=== PATIENT | male | born 1960 | race Caucasian/White ===

== ENCOUNTER → 2016-10-19 | Outpatient (CLI) | payer OTHER ==
--- NOTE | 2016-10-19 08:18 | KCIC ---
Indication: Pre-MRI screening. Time of exam 8:01 AM No radiopaque orbital foreign body is detected. Electronically signed by: Sunny Cook MD (10/19/2016 8:14 AM) [id number]
--- NOTE | 2016-10-19 09:43 | KCIC ---
Examination: MRI of the left shoulder without contrast HISTORY: History of left shoulder pain, decreased range of motion COMPARISON: None TECHNIQUE: Multiplanar, multisequence MR imaging of the left shoulder was performed without contrast. FINDINGS: The long head the biceps tendon is within the bicipital groove with attachment of the long head of the biceps tendon to the labral anchor grossly appears intact. Small amount of fluid identified around the long head biceps tendon within the bicipital groove. The subscapularis tendon demonstrates mild increased signal likely mild tendinosis. There is mild increased signal identified in the supraspinatus and infraspinatus tendon likely mild tendinosis. There is mild increased T2 signal identified in the bursal side of the supraspinatus tendon. There is 1.3 cm low T2 signal calcification identified overlying the supraspinatus tendon just superior and lateral to the greater tuberosity likely calcific tendinitis. No evidence of full-thickness tear identified. Small amount of fluid identified in the subdeltoid bursa. The attachment of the teres minor tendon grossly appears intact. The visualized labrum grossly appears unremarkable. The muscle bulk grossly appears unremarkable. Moderate degenerative changes identified in the acromion clavicular joint. Acromion is type II. Impression: 1. Calcification identified superficial to the supraspinatus tendon attachment to the greater tuberosity likely calcific tendinitis. 2. Mild tendinosis of the supraspinatus, infraspinatus tendons. Mild increased signal identified in the bursal side of the supraspinatus tendon, question small bursal sided tear. 3. Moderate degenerative changes acromioclavicular joint. Electronically signed by: Yury Mcgowan MD (10/19/2016 9:39 AM) [facility]-KCIC2
== END | disposition home or self-care (01) ==
LOC: KCIC MRI 07:47
PROVIDERS: ATTEND Physician Assistant Medical
DX: M75.102 Unspecified rotator cuff tear or rupture of left shoulder, not specified as traumatic (principal)
CPT/HCPCS: 70030; 73221

== ENCOUNTER → 2019-02-06 | Outpatient (CLI) | payer OTHER ==
--- NOTE | 2019-02-06 16:14 | KCIC ---
MR of the right knee HISTORY: Right knee pain, twisting injury yesterday. TECHNIQUE: Routine multiplanar sequences are obtained. FINDINGS: No evidence of medial meniscal tear. No evidence of lateral meniscal tear. Anterior and posterior cruciate ligament intact. Medial collateral ligament intact. Iliotibial band unremarkable. Fibular collateral ligament and popliteus tendon both demonstrate thickening and heterogeneity, particularly towards their femoral attachment, likely due to chronic degeneration. No acute rupture is seen. Extensor mechanism is intact.. Trace joint effusion. Mild chondromalacia of the patella, moderate to severe at the femoral trochlea. Moderate chondral thinning at the medial and lateral joint compartments. Several small hypointense structures posterior to the PCL, likely small loose bodies measuring up to 4 mm in diameter. No acute fracture. No aggressive bone destruction. Small Arnold's cyst. Mild subcutaneous edema anterior to the patellar tendon. IMPRESSION: 1. Mild motion degradation. 2. DJD, with small posterior loose bodies. 3. Mild thickening and heterogeneity of the popliteus tendon and proximal fibular collateral ligament, likely degenerative in nature. Electronically signed by: Karan Marie MD (02/06/2019 4:11 PM) [facility]-KCIC2
== END | disposition home or self-care (01) ==
LOC: KCIC MRI 14:22
PROVIDERS: ATTEND Physician Assistant
DX: M22.41 Chondromalacia patellae, right knee (principal); M17.11 Unilateral primary osteoarthritis, right knee; M71.21 Synovial cyst of popliteal space [Baker], right knee; M79.89 Other specified soft tissue disorders
CPT/HCPCS: 73721

== ENCOUNTER 2020-06-05 12:26 | Inpatient (IN) | payer SELFPAY ==
[~2020-06-05] VITALS: Ht 172.7 cm; Wt 100.0 kg
[2020-06-05] MEDS ORDERED: methylPREDNISolone SOD SUCC PF 125 MG/2 ML VIAL. IV ONE (12:45)
--- NOTE | 2020-06-05 12:56 | PHYS DOC ---
General Adult EDM: Chief Complaint: SHORTNESS OF BREATH HPI: HPI: Patient is a 59 year old male who [facility] and found out he was positive for Covid on Wednesday. He states ever since then his cough and shortness of breath has increased and he has lack of appetite. Patient has a history of cardiac stents, hypertension high cholesterol. He denies any chest pain at this time. He states that shortness of breath is more so when he tries to take a deep breath and starts coughing and short of breath. He denies chest pain, dizziness, vomiting, nausea, syncope, diarrhea, focal weakness, numbness or tingling. Rating his discomfort at this time 6 out of 10. (IDA PEÑA APRN) Review of Systems: Review of Systems: Constitutional: + fever or chills. [] Eyes: Denies change in visual acuity. [] HENT: Denies nasal congestion or sore throat. [] Respiratory: + cough or +shortness of breath. [] Cardiovascular: Denies chest pain or edema. [] GI: Denies abdominal pain, nausea, vomiting, bloody stools or diarrhea. + Lack of appetite [] : Denies dysuria. [] Musculoskeletal: Denies back pain or joint pain. + Generalized fatigue and body aches [] Integument: Denies rash. [] Neurologic: Denies headache, focal weakness or sensory changes. [] Endocrine: Denies polyuria or polydipsia. [] Lymphatic: Denies swollen glands. [] Psychiatric: Denies depression or anxiety. [] (DIA PEÑA APRN) Heart Score: C/O Chest Pain: No Risk Factors: Risk Factors: DM, Current or recent (<one month) smoker, HTN, HLP, family history of CAD, obesity. Risk Scores: Score 0 - 3: 2.5% MACE over next 6 weeks - Discharge Home Score 4 - 6: 20.3% MACE over next 6 weeks - Admit for Clinical Observation Score 7 - 10: 72.7% MACE over next 6 weeks - Early Invasive Strategies (IDA PEÑA APRN) Current Medications: Current Medications Medications (Trade) Dose Ordered Sig/Maria Dolores Start Time Stop Time Status Last Admin Dose Admin Methylprednisolone Sodium Succinate (SOLU-Medrol 125MG VIAL) 125 mg 1X ONCE 06/05/20 12:45 4/28/21 12:46 UNV (IDA PEÑA APRN) Physical Exam: PE: Constitutional: Well developed, well nourished, no acute distress, non-toxic appearance. [] HENT: Normocephalic, atraumatic, bilateral external ears normal, oropharynx moist, no oral exudates, nose normal. [] Eyes: PERRLA, EOMI, conjunctiva normal, no discharge. [] Neck: Normal range of motion, no tenderness, supple, no stridor. [] Cardiovascular:Heart rate regular rhythm, no murmur [] Lungs & Thorax: Bilateral breath sounds clear to auscultation [] Abdomen: Bowel sounds normal, soft, no tenderness, no masses, no pulsatile masses. [] Skin: Warm, dry, no erythema, no rash. [] Back: No tenderness, no CVA tenderness. [] Extremities: No tenderness, no cyanosis, no clubbing, ROM intact, no edema. [] Neurologic: Alert and oriented X 3, normal motor function, normal sensory function, no focal deficits noted. [] Psychologic: Affect normal, judgement normal, mood normal. Normal physical exam [] (IDA PEÑA APRN) EKG: EK and read by Dr Johnson as Sinus Rhythm and no STEMI[] (IDA PEÑA APRN) Radiology/Procedures: Radiology/Procedures: [] Impression: [facility] [address] [place] [address] IMAGING REPORT Signed PATIENT: JANINE KAPLAN ACCOUNT: [id number] : 1960 LOCATION: ER AGE: 59 SEX: M EXAM STATUS: REG ER ORD. PHYSICIAN: IDA PEÑA APRN REASON: soa, covid+ PROCEDURE: PORTABLE CHEST 1V INDICATION: Reason: soa, covid+ / Spl. Instructions: / History: COMPARISON: None. FINDINGS: Single view of chest obtained. Cardiac silhouette is borderline in size. Patchy opacities throughout the bilateral lungs including interstitial and alveolar component IMPRESSION: * Interstitial and alveolar opacities bilaterally. This could be infectious in nature given the patient's history. Electronically signed by: Jaci Otoole MD (06/05/2020 1:28 PM) [id number] DICTATED and SIGNED BY: JACI OTOOLE MD DATE: 06/05/20 [id number] (IDA PEÑA APRN) Course & Med Decision Making: Course & Med Decision Making Pertinent Labs and Imaging studies reviewed. (See chart for details) See HPI. Alert and oriented x4. Ambulatory with a steady gait. Speaks in full clear sentences. No respiratory distress. Lungs are clear to auscultation all lobes. No extremity swelling. Skin pink warm and dry. Patient is anywhere from 89% to 90% on room air. He is placed on 2 L of oxygen. Chest x-ray shows pneumonia. Patient received fluid bolus, azithromycin and Solu-Medrol in the ED. Patient is admitted to Dr. Sharma and will consult pulmonary. [] (IDA PEÑA APRN) Dragon Disclaimer: Dragdonato Disclaimer: This electronic medical record was generated, in whole or in part, using a voice recognition dictation system. (IDA PEÑA APRN) COVID-19 Patient Risks: Age 65 or older: No Sign of co-morbidity: Yes Exp to person + for COVID: Yes Exp to PUI: No Travel from affected area: No Lower respiratory symptoms: Yes Fever: No Other: Yes (POSITIVE FOR COVID) (IDA PEÑA APRN) PPE Use: Full PPE with N95 mask or PAPR: Yes (IDA PEÑA APRN) Departure Departure Impression: Primary Impression: Pneumonia Qualified Codes: J18.9 - Pneumonia, unspecified organism Additional Impressions: COVID-19 Hypoxia Disposition: ADMITTED INPATIENT Admitting Physician: LOLA (IDA PEÑA APRN) Condition: STABLE Referrals: NO PCP (PCP) Attending Signature Attending Signature I have participated in the care of this patient and I have reviewed and agree with all pertinent clinical information above including history, exam, and recommendations. (VASILE JOHNSON DO) IDA PEÑA APRN Jun 05, 2020 12:56 VASILE JOHNSON DO Jun 05, 2020 15:47
--- NOTE | 2020-06-05 13:30 | RAD ---
INDICATION: Reason: soa, covid+ / Spl. Instructions: / History: COMPARISON: None. FINDINGS: Single view of chest obtained. Cardiac silhouette is borderline in size. Patchy opacities throughout the bilateral lungs including i nterstitial and alveolar component IMPRESSION: * Interstitial and alveolar opacities bilaterally. This could be infectious in nature given the tye ent's history. Electronically signed by: Carlos Patel MD (06/05/2020 1:28 PM) [id number]
[2020-06-05] MEDS ORDERED: AZITHRMYCN 500MG IVPB FOR OMNI 250 ML IV ONE (13:45)
--- NOTE | 2020-06-05 13:48 | EKG ---
[facility] [address] [place] [address] Test Date: 2020-06-05 Test Time: 13:09:16 Pat Name: JANINE KAPLAN Department: Room: Gender: M Paper Folder: : 1960 Requested By: IDA PEÑA Order Number: [id number] Reading MD: Measurements Intervals [place] Rate: 82 P: 26 [place]: 174 QRS: -4 QRSD: 80 T: 1 QT: 366 QTc: 431 Interpretive Statements SINUS RHYTHM LEFTWARD AXIS QRS(T) CONTOUR ABNORMALITY CONSIDER INFERIOR INFARCT POSSIBLY ABNORMAL ECG RI6.02 No previous ECG available for comparison
[2020-06-05 13:55] LABS: BASO % 0 % (0-3); EOS % 0 % (0-3); HEMATOCRIT 43.9 % (39.0-53.0); HEMOGLOBIN 15.4 g/dL (13.0-17.5); LYMPH # 0.6 x10^3/uL (1.0-4.8); LYMPH % 15 % (24-48); MEAN CORPUSCULAR HEMOGLOBIN 31 pg (25-35); MEAN CORPUSCULAR HGB CONC 35 g/dL (31-37); MEAN CORPUSCULAR VOLUME 87 fL (79-100); MONO # 0.4 x10^3/uL (0.0-1.1); MONO % 11 % (0-9); NEUT # 2.8 x10^3/uL (1.8-7.7); NEUT % 74 % (31-73); PLATELET COUNT 208 x10^3/uL (140-400); RED BLOOD COUNT 5.04 x10^6/uL (4.30-5.70); RED CELL DISTRIBUTION WIDTH 13.5 % (11.5-14.5); WHITE BLOOD COUNT 3.8 x10^3/uL (4.0-11.0)
[2020-06-05] MEDS ORDERED: ACETAMINOPHEN 325 MG TABLET. PO PRN (14:00)
[2020-06-05 14:06] LABS: CALCIUM 8.5 mg/dL (8.5-10.1); CREATININE 1.6 mg/dL (0.7-1.3); GFR 44.6; POTASSIUM 3.5 mmol/L (3.5-5.1)
[2020-06-05 14:14] LABS: BASE EXCESS COOX 0 mmol/L (-3-3); HCO3 COOX 24 mmol/L (21-28); METHEMOGLOBIN 0.3 % (0.0-1.9); OXYHEMOGLOBIN 94.7 %; PCO2 COOX 37 mmHg (35-46); PO2 COOX 76 mmHg (75-108); SAT O2 COOX 95 % (92-99)
[2020-06-05 14:20] LABS: ALBUMIN 3.2 g/dL (3.4-5.0); ALBUMIN/GLOBULIN RATIO 0.9 (1.0-1.7); TOTAL BILIRUBIN 0.6 mg/dL (0.2-1.0); TOTAL PROTEIN 6.8 g/dL (6.4-8.2)
[2020-06-05] MEDS: ALBUTEROL SULFATE 8GM INHALER. INH SCH ×2 (14:57→21:42)
[2020-06-05 16:30] VITALS: BP 128/80
--- NOTE | 2020-06-05 16:52 | PDOC1 ---
History and Physical Date of Admission Date of Admission DATE: 06/05/20 TIME: 16:47 Identification/Chief Complaint Chief Complaint COVID sx Source Source: Chart review, Patient History of Present Illness History of Present Illness Mr. Wu, is a 59 year old male admit with cough, dyspnea and weakness, He has known he was COVID pos for a week, and has been feeling worse, with weakness and shortness of breath, lethargy. He complaints of worsening cough and shortness of breath has increased and he has lack of appetite. . He denies any chest pain at this time. He states that shortness of breath is more so when he tries to take a deep breath and starts coughing and short of breath. He denies chest pain, dizziness, vomiting, nausea, syncope, diarrhea, focal weakness, numbness or tingling. Rating his discomfort at this time 6 out of 10. he works in [employer], has been out for over 2 weeks, his employer is also ill with COVID Past Medical History Past Medical History prior cardiac stent Cardiovascular: CAD, HTN, Hyperlipidemia Pulmonary: No pertinent hx Heme/Onc: No pertinent hx Hepatobiliary: No pertinent hx Psych: No pertinent hx Renal/: No pertinent hx Past Surgical History Past Surgical History: Other (stent) Family History Family History: No Significant Social History Smoke: No ALCOHOL: none Drugs: None Current Problem List Problem List Problems Medical Problems: (1) COVID-19 Status: Acute (2) Hypoxia Status: Acute (3) Pneumonia Status: Acute Current Medications Current Medications Current Medications Methylprednisolone Sodium Succinate (SOLU-Medrol 125MG VIAL) 125 mg 1X ONCE IV Last administered on 06/05/20at 13:44; Start 06/05/20 at 12:45; Stop 06/05/20 at 12:56; Status DC Azithromycin 250 ml @ 250 mls/hr 1X ONCE IV Last administered on 06/05/20at 13:45; Start 06/05/20 at 13:45; Stop 06/05/20 at 14:44; Status DC Acetaminophen (Tylenol) 650 mg PRN Q4HRS PRN PO FEVER > 100.3'F; Start 06/05/20 at 14:00; Stop 06/06/20 at 13:59 Albuterol Sulfate (Ventolin Hfa) 2 puff RTQID INH Last administered on 4/28/21at 14:57; Start 06/05/20 at 14:30 Enoxaparin Sodium (Lovenox Per Pharmacy Prophylaxis Dosing) 1 each PRN DAILY PRN MC SEE COMMENTS; Start 06/05/20 at 15:00 Prednisone (Prednisone) 40 mg DAILY PO ; Start 06/06/20 at 09:00 Vitamin D (Vitamin D3) 5,000 unit DAILY PO ; Start 06/06/20 at 09:00 Ascorbic Acid (Vitamin C) 500 mg DAILY PO ; Start 06/06/20 at 09:00 Zinc Sulfate (Orazinc) 220 mg DAILY PO ; Start 06/06/20 at 09:00 Enoxaparin Sodium (Lovenox 40mg Syringe) 40 mg Q24H SQ ; Start 06/05/20 at 16:00 Allergies Allergies: Coded Allergies: Penicillins (Verified Allergy, Unknown, 06/05/20) ROS General: YES: Fatigue, Malaise PSYCHOLOGICAL ROS: No: Anxiety, Behavioral Disorder, Concentration difficultie, Decreased libido, Depression, Disorientation, Hallucinations, Hostility, Irritablity, Memory difficulties, Mood Swings, Obsessive thoughts, Physical abuse, Sexual abuse, Sleep disturbances, Suicidal ideation, Other Eyes: No Blurry vision, No Decreased vision, No Double vision, No Dry eyes, No Excessive tearing, No Eye Pain, No Itchy Eyes, No Loss of vision, No Photophobia, No Scotomata, No Uses contacts, No Uses glasses, No Other HEENT: YES: Heacaches; No: Visual Changes, Hearing change, Nasal congestion, Nasal discharge, Oral lesions, Sinus pain, Sore Throat, Epistaxis, Sneezing, Snoring, Tinnitus, Vertigo, Vocal changes, Other Respiratory: YES: Shortness of breath, SOB with excertion, Tachypnea; No: Cough, Hemoptysis, Orthopnea, Pleuritic Pain, Sputum Changes, Stridor, Wheezing, Other Cardiovascular: No Chest Pain, No Palpitations, No Orthopnea, No Paroxysmal Noc. Dyspnea, No Edema, No Lt Headedness, No Other Gastrointestinal: No Nausea, No Vomiting, No Abdominal Pain, No Diarrhea, No Constipation, No Melena, No Hematochezia, No Other Genitourinary: No Dysuria, No Frequency, No Incontinence, No Hematuria, No Retention, No Discharge, No Urgency, No Pain, No Flank Pain, No Other, No , No , No , No , No , No , No Musculoskeletal: No Gait Disturbance, No Joint Pain, No Joint Stiffness, No Joint Swelling, No Muscle Pain, No Muscular Weakness, No Pain In:, No Swelling In:, No Other Neurological: No Behavorial Changes, No Bowel/Bladder ControlChng, No Confusion, No Dizziness, No Gait Disturbance, No Headaches, No Impaired Coord/balance, No Memory Loss, No Numbness/Tingling, No Seizures, No Speech Problems, No Tremors, No Visual Changes, No Weakness, No Other Skin: Yes Dry Skin Physical Exam General: Alert, Oriented X3, mild distress HEENT: Atraumatic, EOMI Lungs: Other (limited vol, rales, ) Heart: S1S2 Abdomen: Soft Extremities: No edema Skin: No significant lesion Neuro: Normal speech, Sensation intact, Cranial nerves 3-12 NL Psych/Mental Status: Mental status NL, Mood NL Vitals Vitals Vital Signs Date Time Temp Pulse Resp B/P (MAP) Pulse Ox O2 Delivery O2 Flow Rate FiO2 06/05/20 16:21 72 120/73 (89) 95 Nasal Cannula 2.0 06/05/20 12:56 98.6 22 98.6 Labs Labs Laboratory Tests Test 06/05/20 13:00 06/05/20 14:15 White Blood Count 3.8 x10^3/uL (4.0-11.0) Red Blood Count 5.04 x10^6/uL (4.30-5.70) Hemoglobin 15.4 g/dL (13.0-17.5) Hematocrit 43.9 % (39.0-53.0) Mean Corpuscular Volume 87 fL (79-100) Mean Corpuscular Hemoglobin 31 pg (25-35) Mean Corpuscular Hemoglobin Concent 35 g/dL (31-37) Red Cell Distribution Width 13.5 % (11.5-14.5) Platelet Count 208 x10^3/uL (140-400) Neutrophils (%) (Auto) 74 % (31-73) Lymphocytes (%) (Auto) 15 % (24-48) Monocytes (%) (Auto) 11 % (0-9) Eosinophils (%) (Auto) 0 % (0-3) Basophils (%) (Auto) 0 % (0-3) Neutrophils # (Auto) 2.8 x10^3/uL (1.8-7.7) Lymphocytes # (Auto) 0.6 x10^3/uL (1.0-4.8) Monocytes # (Auto) 0.4 x10^3/uL (0.0-1.1) Eosinophils # (Auto) 0.0 x10^3/uL (0.0-0.7) Basophils # (Auto) 0.0 x10^3/uL (0.0-0.2) Sodium Level 141 mmol/L (136-145) Potassium Level 3.5 mmol/L (3.5-5.1) Chloride Level 104 mmol/L (98-107) Carbon Dioxide Level 26 mmol/L (21-32) Anion Gap 11 (6-14) Blood Urea Nitrogen 19 mg/dL (8-26) Creatinine 1.6 mg/dL (0.7-1.3) Estimated GFR (Cockcroft-Gault) 44.6 BUN/Creatinine Ratio 12 (6-20) Glucose Level 105 mg/dL (70-99) Lactic Acid Level 1.5 mmol/L (0.4-2.0) Calcium Level 8.5 mg/dL (8.5-10.1) Total Bilirubin 0.6 mg/dL (0.2-1.0) Aspartate Amino Transf (AST/SGOT) 36 U/L (15-37) Alanine Aminotransferase (ALT/SGPT) 33 U/L (16-63) Alkaline Phosphatase 67 U/L (46-116) Troponin I Quantitative < 0.017 ng/mL (0.000-0.055) KK-Szv-[id number]-Type Natriuretic Peptide 33 pg/mL (0-124) Total Protein 6.8 g/dL (6.4-8.2) Albumin 3.2 g/dL (3.4-5.0) Albumin/Globulin Ratio 0.9 (1.0-1.7) O2 Saturation 95 % (92-99) Arterial Blood pH 7.43 (7.35-7.45) Arterial Blood pCO2 at Patient Temp 37 mmHg (35-46) Arterial Blood pO2 at Patient Temp 76 mmHg (75-108) Arterial Blood HCO3 24 mmol/L (21-28) Arterial Blood Base Excess 0 mmol/L (-3-3) Oxyhemoglobin 94.7 % Methemoglobin 0.3 % (0.0-1.9) Carbon Monoxide, Quantitative 0.1 % (0.0-1.9) FiO2 3l nc Laboratory Tests Test 06/05/20 13:00 06/05/20 14:15 White Blood Count 3.8 x10^3/uL (4.0-11.0) Red Blood Count 5.04 x10^6/uL (4.30-5.70) Hemoglobin 15.4 g/dL (13.0-17.5) Hematocrit 43.9 % (39.0-53.0) Mean Corpuscular Volume 87 fL (79-100) Mean Corpuscular Hemoglobin 31 pg (25-35) Mean Corpuscular Hemoglobin Concent 35 g/dL (31-37) Red Cell Distribution Width 13.5 % (11.5-14.5) Platelet Count 208 x10^3/uL (140-400) Neutrophils (%) (Auto) 74 % (31-73) Lymphocytes (%) (Auto) 15 % (24-48) Monocytes (%) (Auto) 11 % (0-9) Eosinophils (%) (Auto) 0 % (0-3) Basophils (%) (Auto) 0 % (0-3) Neutrophils # (Auto) 2.8 x10^3/uL (1.8-7.7) Lymphocytes # (Auto) 0.6 x10^3/uL (1.0-4.8) Monocytes # (Auto) 0.4 x10^3/uL (0.0-1.1) Eosinophils # (Auto) 0.0 x10^3/uL (0.0-0.7) Basophils # (Auto) 0.0 x10^3/uL (0.0-0.2) Sodium Level 141 mmol/L (136-145) Potassium Level 3.5 mmol/L (3.5-5.1) Chloride Level 104 mmol/L (98-107) Carbon Dioxide Level 26 mmol/L (21-32) Anion Gap 11 (6-14) Blood Urea Nitrogen 19 mg/dL (8-26) Creatinine 1.6 mg/dL (0.7-1.3) Estimated GFR (Cockcroft-Gault) 44.6 BUN/Creatinine Ratio 12 (6-20) Glucose Level 105 mg/dL (70-99) Lactic Acid Level 1.5 mmol/L (0.4-2.0) Calcium Level 8.5 mg/dL (8.5-10.1) Total Bilirubin 0.6 mg/dL (0.2-1.0) Aspartate Amino Transf (AST/SGOT) 36 U/L (15-37) Alanine Aminotransferase (ALT/SGPT) 33 U/L (16-63) Alkaline Phosphatase 67 U/L (46-116) Troponin I Quantitative < 0.017 ng/mL (0.000-0.055) HL-Udp-Y-Type Natriuretic Peptide 33 pg/mL (0-124) Total Protein 6.8 g/dL (6.4-8.2) Albumin 3.2 g/dL (3.4-5.0) Albumin/Globulin Ratio 0.9 (1.0-1.7) O2 Saturation 95 % (92-99) Arterial Blood pH 7.43 (7.35-7.45) Arterial Blood pCO2 at Patient Temp 37 mmHg (35-46) Arterial Blood pO2 at Patient Temp 76 mmHg (75-108) Arterial Blood HCO3 24 mmol/L (21-28) Arterial Blood Base Excess 0 mmol/L (-3-3) Oxyhemoglobin 94.7 % Methemoglobin 0.3 % (0.0-1.9) Carbon Monoxide, Quantitative 0.1 % (0.0-1.9) FiO2 3l nc VTE Prophylaxis Ordered VTE Prophylaxis Devices: No VTE Pharmacological Prophylaxi: Yes Assessment/Plan Assessment/Plan acute hypoxia pneumonia COVID 19 positive with weakness and cough admit, azithro, steroids, vitamins, consult PULM, obese, BMI 34 CAD hx htn, CKD 2 or dry, will hydrate, recheck labs Justifications for Admission Other Justification ANDREE AWAN MD Jun 05, 2020 16:52
[2020-06-05] MEDS ORDERED: POTASSIUM CHLORIDE 20 MEQ TABLET.ER. PO ONE (17:00)
[2020-06-05] MEDS: ENOXAPARIN 40 MG/0.4 ML SYRINGE. SQ SCH (17:13)
[2020-06-05] MEDS ORDERED: LISI20TA18 PO (18:19)
[2020-06-05] MEDS ORDERED: CLOP75TA PO (18:19)
[2020-06-05] MEDS ORDERED: CARV6.25 PO (18:19)
[2020-06-05] MEDS ORDERED: ALPR0.5T PO (18:19)
[2020-06-05 19:00] VITALS: BP 119/82
[2020-06-05 22:57] VITALS: BP 111/74
[2020-06-06 03:00] VITALS: BP 123/80
[2020-06-06 07:00] VITALS: BP 124/75
[2020-06-06] MEDS ORDERED: ASCORBIC ACID 500 MG TABLET PO SCH (09:00)
[2020-06-06] MEDS ORDERED: ZINC SULFATE 220 MG CAPSULE. PO SCH (09:00)
[2020-06-06] MEDS ORDERED: predniSONE 20 MG TABLET PO SCH (09:00)
[2020-06-06] MEDS ORDERED: CHOLECALCIFEROL (VITAMIN D3) 5,000 UNIT CAPSULE PO SCH (09:00)
[2020-06-06] MEDS: ALBUTEROL SULFATE 8GM INHALER. INH SCH ×3 (10:17→16:27)
--- NOTE | 2020-06-06 10:49 | NUR ---
[facility] following. Discussed with RN, pt from home, 2L (does not use oxygen at home), cardiac diet. Pt is not wanting to be in the hospital as he is concerned about cost. Per RN, pt willing to pay whatever he needs to have oxygen at home and be able to discharge home today. Pt is COVID positive. RN will order a 6 minute walk, SW awaiting self pay prices for oxygen. [facility] will continue to follow. Addendum: 06/06/20 at 1619 by HERRERA CRAIN Per RN pt does need oxygen however still waiting for respiratory to enter their notes. [facility] provided referral packet to RN with fax number for [employer] which was the cheapest self pay oxygen at $120 a month. RN will fax referral to [employer] once 6 minute walk results are available. Tank left with Gail CONNOLLY to give to patient once the okay given by [employer]. Discharge order for home with self care.
[2020-06-06 11:00] VITALS: BP 137/82
--- NOTE | 2020-06-06 11:47 | PDOC ---
[employer] PROGRESS NOTE Date of Service DOS: DATE: 06/06/20 TIME: 11:46 Chief Complaint Chief Complaint A/P: acute hypoxia pneumonia COVID 19 positive with weakness and cough admit, azithro, steroids, vitamins, consult PULM, obese, BMI 34 CAD hx htn, CKD 2 or dry, will hydrate, recheck labs History of Present Illness History of Present Illness Mr. Wu, is a 59 year old male admit with cough, dyspnea and weakness, He has known he was COVID pos for a week, and has been feeling worse, with weakness and shortness of breath, lethargy. Symptoms aguilar on 05/22/2020 He complaints of worsening cough and shortness of breath has increased and he has lack of appetite. . He denies any chest pain at this time. He states that shortness of breath is more so when he tries to take a deep breath and starts coughing and short of breath. He denies chest pain, dizziness, vomiting, nausea, syncope, diarrhea, focal weakness, numbness or tingling. Rating his discomfort at this time 6 out of 10. he works in [employer], has been out for over 2 weeks, his employer is also ill with COVID Decreased appetite weak and achy. Requiring 3 L of oxygen otherwise desaturates to 84%. He is amenable to having remdesivir and steroid therapy. He is very anxious to go home. Plan: Remdesivir loading dose, IV Decadron. Will go home after 6-minute walk if his O2 needs are less than 4 L and take 10 days of Decadron and antiplatelet zinc cough syrup. Discussed with pulmonology Vitals/I&O Vitals/I&O: Vital Signs Date Time Temp Pulse Resp B/P (MAP) Pulse Ox O2 Delivery O2 Flow Rate FiO2 06/06/20 07:50 Nasal Cannula 2.0 06/06/20 07:00 98.4 85 18 124/75 (91) 91 98.4 I & O 06/05/20 06/05/20 06/06/20 15:00 23:00 07:00 Intake Total 200 ml Balance 200 ml Physical Exam General: Alert, Oriented X3, mild distress Abdomen: Soft Extremities: No edema Skin: No significant lesion Labs Labs: Laboratory Tests Test 06/05/20 13:00 06/05/20 14:15 White Blood Count 3.8 x10^3/uL (4.0-11.0) Red Blood Count 5.04 x10^6/uL (4.30-5.70) Hemoglobin 15.4 g/dL (13.0-17.5) Hematocrit 43.9 % (39.0-53.0) Mean Corpuscular Volume 87 fL (79-100) Mean Corpuscular Hemoglobin 31 pg (25-35) Mean Corpuscular Hemoglobin Concent 35 g/dL (31-37) Red Cell Distribution Width 13.5 % (11.5-14.5) Platelet Count 208 x10^3/uL (140-400) Neutrophils (%) (Auto) 74 % (31-73) Lymphocytes (%) (Auto) 15 % (24-48) Monocytes (%) (Auto) 11 % (0-9) Eosinophils (%) (Auto) 0 % (0-3) Basophils (%) (Auto) 0 % (0-3) Neutrophils # (Auto) 2.8 x10^3/uL (1.8-7.7) Lymphocytes # (Auto) 0.6 x10^3/uL (1.0-4.8) Monocytes # (Auto) 0.4 x10^3/uL (0.0-1.1) Eosinophils # (Auto) 0.0 x10^3/uL (0.0-0.7) Basophils # (Auto) 0.0 x10^3/uL (0.0-0.2) Sodium Level 141 mmol/L (136-145) Potassium Level 3.5 mmol/L (3.5-5.1) Chloride Level 104 mmol/L (98-107) Carbon Dioxide Level 26 mmol/L (21-32) Anion Gap 11 (6-14) Blood Urea Nitrogen 19 mg/dL (8-26) Creatinine 1.6 mg/dL (0.7-1.3) Estimated GFR (Cockcroft-Gault) 44.6 BUN/Creatinine Ratio 12 (6-20) Glucose Level 105 mg/dL (70-99) Lactic Acid Level 1.5 mmol/L (0.4-2.0) Calcium Level 8.5 mg/dL (8.5-10.1) Total Bilirubin 0.6 mg/dL (0.2-1.0) Aspartate Amino Transf (AST/SGOT) 36 U/L (15-37) Alanine Aminotransferase (ALT/SGPT) 33 U/L (16-63) Alkaline Phosphatase 67 U/L (46-116) Troponin I Quantitative < 0.017 ng/mL (0.000-0.055) CR-Dot-R-Type Natriuretic Peptide 33 pg/mL (0-124) Total Protein 6.8 g/dL (6.4-8.2) Albumin 3.2 g/dL (3.4-5.0) Albumin/Globulin Ratio 0.9 (1.0-1.7) O2 Saturation 95 % (92-99) Arterial Blood pH 7.43 (7.35-7.45) Arterial Blood pCO2 at Patient Temp 37 mmHg (35-46) Arterial Blood pO2 at Patient Temp 76 mmHg (75-108) Arterial Blood HCO3 24 mmol/L (21-28) Arterial Blood Base Excess 0 mmol/L (-3-3) Oxyhemoglobin 94.7 % Methemoglobin 0.3 % (0.0-1.9) Carbon Monoxide, Quantitative 0.1 % (0.0-1.9) FiO2 3l nc Assessment and Plan Assessmemt and Plan Problems Medical Problems: (1) COVID-19 Status: Acute (2) Hypoxia Status: Acute (3) Pneumonia Status: Acute Comment Review of Relevant I have reviewed the following items patito (where applicable) has been applied. Medications: Current Medications Medications (Trade) Dose Ordered Sig/Maria Dolores Route PRN Reason Start Time Stop Time Status Last Admin Dose Admin Methylprednisolone Sodium Succinate (SOLU-Medrol 125MG VIAL) 125 mg 1X ONCE IV 06/05/20 12:45 06/05/20 12:56 DC 06/05/20 13:44 Azithromycin 250 ml @ 250 mls/hr 1X ONCE IV 06/05/20 13:45 06/05/20 14:44 DC 06/05/20 13:45 Albuterol Sulfate (Ventolin Hfa) 2 puff RTQID INH 06/05/20 14:30 06/06/20 10:17 Prednisone (Prednisone) 40 mg DAILY PO 06/06/20 09:00 06/06/20 10:17 Vitamin D (Vitamin D3) 5,000 unit DAILY PO 06/06/20 09:00 06/06/20 10:18 Ascorbic Acid (Vitamin C) 500 mg DAILY PO 06/06/20 09:00 06/06/20 10:17 Zinc Sulfate (Orazinc) 220 mg DAILY PO 06/06/20 09:00 06/06/20 10:17 Enoxaparin Sodium (Lovenox 40mg Syringe) 40 mg Q24H SQ 06/05/20 16:00 06/05/20 17:13 Potassium Chloride (Klor-Con) 20 meq 1X ONCE PO 06/05/20 17:00 06/05/20 17:01 DC 06/05/20 17:13 Justifications for Admission Other Justification LEON QIU MD Jun 06, 2020 11:47
--- NOTE | 2020-06-06 13:16 | CONS ---
DATE OF CONSULTATION: 06/06/2020 ATTENDING PHYSICIAN: Dr. Sharma. REASON FOR CONSULTATION: Respiratory failure, COVID-19 pneumonia. HISTORY OF PRESENT ILLNESS: The patient is a 59-year-old obese male with a BMI of 33. He has no significant tobacco history. He has a history of CAD with prior cardiac stent. He was brought into the hospital after he was feeling weak and had some mild shortness of breath with exertion along with cough. No nausea, vomiting, no headache, no dysuria. His chest x-ray was reviewed and it shows mild interstitial infiltrate involving the right lung. The patient's COVID test came back positive. PAST MEDICAL HISTORY: Significant for CAD, hypertension, hyperlipidemia. PAST SURGICAL HISTORY: Cardiac stent. FAMILY HISTORY: Noncontributory. SOCIAL HISTORY: No significant tobacco history. ALLERGIES: PENICILLIN. MEDICATIONS: Reviewed as listed in the MRAD. PHYSICAL EXAMINATION: VITAL SIGNS: Vitals signs were reviewed. He is afebrile. Pulse ox is 91-93% on 2 liters. GENERAL: Visual exam done due to COVID-19. No obvious respiratory distress. ABDOMEN: He is obese. EXTREMITIES: No leg edema. LABORATORY DATA: Labs are reviewed. White cell count 3.8, hemoglobin 15.4 and platelets are 208. ABGs were reviewed. PO2 of 76 on 3 liters. ASSESSMENT: 1. Acute hypoxic respiratory failure secondary to COVID-19 viral pneumonia. 2. No significant tobacco history. 3. Underlying coronary artery disease with prior stent placement. 4. Underlying obesity. RECOMMENDATION: 1. I have discussed with the patient that it is in his best interest that he should stay in the hospital for another 24-48 hours. The patient is adamant about going home as he does not have resources despite my reassurance. He wants to cover for oxygen on his own if he qualifies. A 6-minute walk test has been ordered by PCP. 2. I would discharge him on Decadron if he insisted on leaving. Discussed with RN./ Dr Armando MIRANDA/ASHLEY/OXANA REINA: RUTH/jn TID: [id number] [facility]
[2020-06-06] MEDS ORDERED: REMDESIVIR LOAD in IV NORMAL SALINE 250ML TV IV ONE (14:30)
[2020-06-06 15:00] VITALS: BP 139/87
[2020-06-06] MEDS: ENOXAPARIN 40 MG/0.4 ML SYRINGE. SQ SCH (16:00)
[2020-06-06] MEDS ORDERED: ZINC220C5 PO (16:02)
[2020-06-06] MEDS ORDERED: AZIT500T4 PO (16:02)
[2020-06-06] MEDS ORDERED: DEXA4TAB63 PO (16:02)
--- NOTE | 2020-06-06 18:25 | NUR ---
Discharge Note: HELLEN KAPLAN Discharge instructions and discharge home medications reviewed with Patient and a copy given. All questions have been answered and understanding verbalized. The following instructions and handouts were given: discharge instructions, new prescriptions, education and follow up recommendations and home oxygen tank. Discontinued lines and drains: Peripheral IV discontinued intact. Patient discharged to Home or Self Care with Friend via Wheelchair off unit by this RN.
--- NOTE | 2020-06-06 23:05 | PDOC3 ---
Discharge Summary Visit Information Date of Admission: Jun 05, 2020 Date of Discharge: Jun 06, 2020 Admitting Diagnosis: Acute hypoxia, COVID 19 Final Diagnosis Problems Medical Problems: (1) COVID-19 Status: Acute (2) Hypoxia Status: Acute (3) Pneumonia Status: Acute Brief Hospital Course Allergies Allergies Coded Allergies Type Severity Reaction Last Updated Verified Penicillins Allergy Unknown 06/05/20 Yes Vital Signs Vital Signs Date Time Temp Pulse Resp B/P (MAP) Pulse Ox O2 Delivery O2 Flow Rate FiO2 06/06/20 15:00 98.4 91 18 139/87 (104) 93 Nasal Cannula 3.0 98.4 Lab Results Laboratory Tests Test 06/05/20 13:00 06/05/20 14:15 White Blood Count 3.8 x10^3/uL (4.0-11.0) Red Blood Count 5.04 x10^6/uL (4.30-5.70) Hemoglobin 15.4 g/dL (13.0-17.5) Hematocrit 43.9 % (39.0-53.0) Mean Corpuscular Volume 87 fL (79-100) Mean Corpuscular Hemoglobin 31 pg (25-35) Mean Corpuscular Hemoglobin Concent 35 g/dL (31-37) Red Cell Distribution Width 13.5 % (11.5-14.5) Platelet Count 208 x10^3/uL (140-400) Neutrophils (%) (Auto) 74 % (31-73) Lymphocytes (%) (Auto) 15 % (24-48) Monocytes (%) (Auto) 11 % (0-9) Eosinophils (%) (Auto) 0 % (0-3) Basophils (%) (Auto) 0 % (0-3) Neutrophils # (Auto) 2.8 x10^3/uL (1.8-7.7) Lymphocytes # (Auto) 0.6 x10^3/uL (1.0-4.8) Monocytes # (Auto) 0.4 x10^3/uL (0.0-1.1) Eosinophils # (Auto) 0.0 x10^3/uL (0.0-0.7) Basophils # (Auto) 0.0 x10^3/uL (0.0-0.2) Sodium Level 141 mmol/L (136-145) Potassium Level 3.5 mmol/L (3.5-5.1) Chloride Level 104 mmol/L (98-107) Carbon Dioxide Level 26 mmol/L (21-32) Anion Gap 11 (6-14) Blood Urea Nitrogen 19 mg/dL (8-26) Creatinine 1.6 mg/dL (0.7-1.3) Estimated GFR (Cockcroft-Gault) 44.6 BUN/Creatinine Ratio 12 (6-20) Glucose Level 105 mg/dL (70-99) Lactic Acid Level 1.5 mmol/L (0.4-2.0) Calcium Level 8.5 mg/dL (8.5-10.1) Total Bilirubin 0.6 mg/dL (0.2-1.0) Aspartate Amino Transf (AST/SGOT) 36 U/L (15-37) Alanine Aminotransferase (ALT/SGPT) 33 U/L (16-63) Alkaline Phosphatase 67 U/L (46-116) Troponin I Quantitative < 0.017 ng/mL (0.000-0.055) UW-Idj-M-Type Natriuretic Peptide 33 pg/mL (0-124) Total Protein 6.8 g/dL (6.4-8.2) Albumin 3.2 g/dL (3.4-5.0) Albumin/Globulin Ratio 0.9 (1.0-1.7) O2 Saturation 95 % (92-99) Arterial Blood pH 7.43 (7.35-7.45) Arterial Blood pCO2 at Patient Temp 37 mmHg (35-46) Arterial Blood pO2 at Patient Temp 76 mmHg (75-108) Arterial Blood HCO3 24 mmol/L (21-28) Arterial Blood Base Excess 0 mmol/L (-3-3) Oxyhemoglobin 94.7 % Methemoglobin 0.3 % (0.0-1.9) Carbon Monoxide, Quantitative 0.1 % (0.0-1.9) FiO2 3l nc Brief Hospital Course Mr. Wu, is a 59 year old male admit with cough, dyspnea and weakness, He has known he was COVID pos for a week, and has been feeling worse, with weakness and shortness of breath, lethargy. Symptoms aguilar on 05/22/2020 He complaints of worsening cough and shortness of breath has increased and he has lack of appetite. . He denies any chest pain at this time. He states that shortness of breath is more so when he tries to take a deep breath and starts coughing and short of breath. He denies chest pain, dizziness, vomiting, nausea, syncope, diarrhea, focal weakness, numbness or tingling. Rating his discomfort at this time 6 out of 10. he works in [employer], has been out for over 2 weeks, his employer is also ill with COVID Decreased appetite weak and achy. Requiring 3 L of oxygen otherwise desaturates to 84%. He is amenable to having remdesivir and steroid therapy. He is very anxious to go home. Plan: Remdesivir loading dose, IV Decadron. Will go home after 6-minute walk with 1- 3L O2 and take 10 days of Decadron and antiplatelet zinc cough syrup. Discussed with pulmonology Consults: Pulm Problem list: acute hypoxia pneumonia - covid COVID 19 positive with weakness and cough obese, BMI 34 CAD - s/p AUGIE in [place] htn, SOHA - vasomotor nephropathy Greater than 30 minutes spent on d/c home Discharge Information Condition at Discharge: Improved Follow Up: Weeks (1) Disposition/Orders: D/C to Home Scheduled Azithromycin (Azithromycin Tablet) 500 Mg Tablet, 1 TAB PO DAILY for Pneumonia for 5 Days, #5 Ref 0 Prescribed by: LEON QIU MD on 06/06/20 1602 Carvedilol (Coreg ) 6.25 Mg Tablet, 6.25 MG PO BIDWMEALS for CARDIAC, (Reported) Entered as Reported by: NICOLLE SALAMANCA on 06/05/201818 Last Taken: Unknown Dose on 06/04/20 Last Action: New Order on 06/05/201818 by NICOLLE SALAMANCA Clopidogrel Bisulfate (Clopidogrel) 75 Mg Tablet, 75 MG PO DAILY for TO PREVENT BLOOD CLOTS, #30 Ref 0 (Reported) Entered as Reported by: NICOLLE SALAMANCA on 06/05/201818 Last Taken: Unknown Dose on 06/04/20 Last Action: New Order on 06/05/201818 by NICOLLE SALAMANCA Dexamethasone (Decadron) 4 Mg Tablet, 1 TAB PO DAILY for COVID 19 for 10 Days, #10 Ref 0 Prescribed by: LEON QIU MD on 06/06/20 1602 Lisinopril (Lisinopril) 20 Mg Tablet, 20 MG PO DAILY for FOR HYPERTENSION, #30 Ref 0 (Reported) Entered as Reported by: NICOLLE SALAMANCA on 06/05/201818 Last Taken: Unknown Dose on 06/04/20 Last Action: New Order on 06/05/201818 by NICOLLE SALAMANCA Zinc Sulfate (Zinc Sulfate) 50 Mg Capsule, 50 MG PO DAILY for COVID 19 for 30 Days, #30 Prescribed by: LEON QIU MD on 06/06/20 1602 Scheduled PRN Alprazolam (Xanax) 0.5 Mg Tablet, 0.5 MG PO PRN Q6HRS PRN for ANXIETY / AGITATION, Ref 0 (Reported) Entered as Reported by: NICOLLE SALAMANCA on 06/05/201818 Last Taken: Unknown Dose on 06/04/20 Last Action: New Order on 06/05/201818 by NICOLLE SALAMANCA Justicifation of Admission Dx: Justifications for Admission: Justification of Admission Dx: Yes LEON QIU MD Jun 06, 2020 23:05
[2020-06-07] MEDS ORDERED: REMDESIVIR 100mg in NORMAL SALINE 250ML X 4 DAYS IV SCH (14:00)
[2020-06-13] MEDS ORDERED: ESCI10TA90 PO (02:46)
[2020-06-14] MEDS ORDERED: ATOR40TA59 PO (10:37)
[2020-06-14] MEDS ORDERED: ASPI-886 PO (10:37)
[2020-06-14] MEDS ORDERED: CLOP75TA PO (10:37)
== END 2020-06-06 18:25 | disposition home or self-care (01) | DRG 177 ==
LOC: ER 12:26 → ED HOLD 13:59 → 6 SOUTH 16:52
PROVIDERS: ADMIT Internal Medicine; ATTEND Internal Medicine
PROC: XW033E5 Introduction of Remdesivir Anti-infective into Peripheral Vein, Percutaneous Approach, New Technology Group 5 (ICD-10-PCS; principal; 2020-06-06)
DX: U07.1 COVID-19 (principal); J12.82 Pneumonia due to coronavirus disease 2019; J96.01 Acute respiratory failure with hypoxia; N17.0 Acute kidney failure with tubular necrosis; E66.9 Obesity, unspecified; Z68.34 Body mass index [BMI] 34.0-34.9, adult; E78.00 Pure hypercholesterolemia, unspecified; E78.5 Hyperlipidemia, unspecified; I12.9 Hypertensive chronic kidney disease with stage 1 through stage 4 chronic kidney disease, or unspecified chronic kidney disease; I25.10 Atherosclerotic heart disease of native coronary artery without angina pectoris; N18.2 Chronic kidney disease, stage 2 (mild); Z95.5 Presence of coronary angioplasty implant and graft; Z88.0 Allergy status to penicillin
CPT/HCPCS: 36415; 36600; 71045; 80053; 82805; 83605; 83880; 84484; 85025; 87040; 93005; 94618; 96365; 96372; 96375; 99285; J0456; J1650; J2930; J7050; J7512; G0378; J7030